=== PATIENT | female | born 1990 | race Caucasian/White ===

== ENCOUNTER 2017-10-29 14:23 | Emergency (ER) | payer MEDICAID ==
[~2017-10-29] VITALS: Ht 175.3 cm; Wt 50.0 kg
[~2017-10-29 14:23] MED LIST: CLIN300C85 PO; CYCL-120 PO; HYDR-3965 PO; HYDR-569 PO; NAPR-56 PO; PENI500T2 PO
[2017-10-29] MEDS ORDERED: IBUP-1984 PO (15:57)
[2017-10-29 16:04] VITALS: BP 121/70
== END 2017-10-29 16:10 | disposition home or self-care (01) ==
LOC: ER 14:23
DX: S90.02XA Contusion of left ankle, initial encounter (principal); Z79.899 Other long term (current) drug therapy; Z56.0 Unemployment, unspecified; W20.8XXA Other cause of strike by thrown, projected or falling object, initial encounter; Y93.89 Activity, other specified; Y92.89 Other specified places as the place of occurrence of the external cause; Y99.8 Other external cause status
CPT/HCPCS: 73610; 99284

== ENCOUNTER 2018-11-04 17:43 | Emergency (ER) | payer MEDICAID ==
[~2018-11-04] VITALS: Ht 152.4 cm; Wt 51.2 kg
[~2018-11-04 17:43] MED LIST changes: +CLIN-96 PO; -CLIN300C85 PO; +HYDR-4383 PO; -HYDR-569 PO
[2018-11-04] MEDS ORDERED: PENI250T2 PO (18:45)
[2018-11-04 18:52] VITALS: BP 100/62
== END 2018-11-04 18:53 | disposition home or self-care (01) ==
LOC: ER 17:44
DX: K04.7 Periapical abscess without sinus (principal); Z98.890 Other specified postprocedural states; Z56.0 Unemployment, unspecified
CPT/HCPCS: 99283

== ENCOUNTER 2022-02-22 22:20 | Emergency (ER) | payer MEDICAID ==
[~2022-02-22] VITALS: Ht 175.3 cm; Wt 59.1 kg
[~2022-02-22 22:20] MED LIST changes: -CLIN-96 PO; +CLIN-97 PO
[2022-02-22] MEDS ORDERED: CefTRIAXone 500MG IM Kit w/LIDOcaine IM ONE (22:50)
[2022-02-22] MEDS ORDERED: NEO/5DRO7 RIGHT EAR (22:51)
[2022-02-22 23:19] VITALS: BP 120/67
[2022-02-23] MEDS ORDERED: neomy sulf/polymyx B sulf/HC otic soln 10ml RIGHT EAR SCH (08:00)
== END 2022-02-22 23:20 | disposition home or self-care (01) ==
LOC: ER 22:20
DX: H60.91 Unspecified otitis externa, right ear (principal); Z98.890 Other specified postprocedural states; Z56.0 Unemployment, unspecified
CPT/HCPCS: 96372; 99283; J0696